=== PATIENT | female | born 1970 | race Caucasian/White ===

== ENCOUNTER 2018-01-12 19:44 | Emergency (ER) | payer BC, OTHER ==
--- NOTE | 2018-01-12 20:01 | UC ---
Ear Complaint HPI - HPI Summary HPI Summary: 47 yo female presents with right ear pain for the last 4 days getting progressively worse. Denies fever, chills, drainage, muffled hearing, sore throat. - History of Current Complaint Stated Complaint: RIGHT EAR COMPLAINT Time Seen by Provider: 01/12/18 20:01 Hx Obtained From: Patient Hx Last Menstrual Period: "It would have been two or three weeks ago." Onset/Duration: Gradual Onset Severity Initially: Mild Severity Currently: Moderate Pain Intensity: 6 Pain Scale Used: 0-10 Numeric - Allergies/Home Medications Allergies/Adverse Reactions: Allergies Allergy/AdvReac Type Severity Reaction Status Date / Time cefdinir [From Omnicef] AdvReac Vomiting Verified 01/12/18 19:52 sodium benzoate AdvReac Vomiting Verified 01/12/18 19:53 Home Medications: Home Medications Ibuprofen TAB* [Advil TAB*] 400 mg PO Q6H PRN 01/12/18 [History Confirmed ] PMH/Surg Hx/FS Hx/Imm Hx Cardiovascular History: Hypertension Neurological History: Migraine - Surgical History Surgical History: None - Family History Known Family History: Positive: None Negative: Cardiac Disease, Hypertension - Social History Occupation: Employed Full-time Lives: With Family Alcohol Use: None Substance Use Type: None Smoking Status (MU): Never Smoked Tobacco - Immunization History Most Recent Influenza Vaccination: Not the 2016/2016 Season Review of Systems Constitutional: Negative Skin: Negative Eyes: Negative ENT: Ear Ache Respiratory: Negative Cardiovascular: Negative Gastrointestinal: Negative Neurovascular: Negative Neurological: Negative Psychological: Negative All Other Systems Reviewed And Are Negative: Yes Physical Exam - Summary Physical Exam Summary: GENERAL: NAD. WDWN. No pain distress. SKIN: No rashes, sores, lesions, or open wounds. HEENT: Head: AT/NC Eyes: EOM intact. Conjunctiva clear without inflammation or discharge. Ears: Hearing grossly normal. Right TM with mild erythema and bulging. No canal edema or drainage. Throat: Posterior oropharynx without exudates, erythema, or tonsillar enlargement. Uvula midline. NECK: Supple. Nontender. No lymphadenopathy. CHEST: CTAB. No r/r/w. No accessory muscle use. Breathing comfortably and in no distress. CV: RRR. Without m/r/g. Pulses intact. Brisk cap refill. NEURO: Alert. CN II-XII grossly intact. PSYCH: Age appropriate behavior. Triage Information Reviewed: Yes Ear Complaint Course/Dx - Course Course Of Treatment: Right otitis media - Differential Dx/Diagnosis Provider Diagnoses: Right otitis media Discharge - Sign-Out/Discharge Documenting (check all that apply): Discharge/Admit/Transfer - Discharge Plan Condition: Stable Disposition: HOME Prescriptions: Amoxicillin PO (*) [Amoxicillin 500 MG CAP*] 500 mg PO Q12H #14 cap Patient Education Materials: Ear Infection (ED) Referrals: Jono Butler MD [Primary Care Provider] - Additional Instructions: If you develop a fever, shortness of breath, chest pain, new or worsening symptoms - please call your PCP or go to the ED. 1) May try over the counter DORA earache drops for pain relief - Billing Disposition and Condition Condition: STABLE Disposition: HOME
[2018-01-12 20:06] VITALS: BP 105/60
== END 2018-01-12 20:19 | disposition home or self-care (01) ==
LOC: UCCORT 19:44
DX: H66.91 Otitis media, unspecified, right ear (principal); Z88.3 Allergy status to other anti-infective agents; Z88.8 Allergy status to other drugs, medicaments and biological substances
CPT/HCPCS: 99212; G0463

== ENCOUNTER 2018-01-23 17:04 | Emergency (ER) | payer BC ==
[2018-01-23 17:46] VITALS: BP 114/60
--- NOTE | 2018-01-23 19:14 | UC ---
General HPI - HPI Summary HPI Summary: pt states was here 1.5 weeks ago and dx with an ear infection. she was tx with amoxicillin for 10 days and got better; however, about 2 days after she finished the tx she got recurrent pain in her R ear and R jaw. she denies and dental pain but notes a cap fell off her R upper back tooth a long time ago. pt admits to jaw popping. pt also c/o tick bite L lower leg. states on noted an insect (assumed to be a tick) on her leg. she brushed it off. she notes a red spot. she states it was there only briefly. no fever. - History of Current Complaint Chief Complaint: UCEar Stated Complaint: EAR COMPLAINT (R) Time Seen by Provider: 01/23/18 18:55 Hx Obtained From: Patient Hx Last Menstrual Period: 01/01/18 Pain Intensity: 5 Associated Signs & Symptoms: Negative: Fever - Allergy/Home Medications Allergies/Adverse Reactions: Allergies Allergy/AdvReac Type Severity Reaction Status Date / Time cefdinir [From Omnicef] AdvReac Vomiting Verified 01/23/18 17:40 Home Medications: Home Medications Norethindr/Eth Estradiol(Nf) [Lo Loestrin Fe (NF)] 1 tab DAILY 01/23/18 [ History Confirmed 01/23/18] PMH/Surg Hx/FS Hx/Imm Hx - Additional Past Medical History Additional PMH: OM Neurological History: Migraine - Surgical History Surgical History: None Surgery Procedure, Year, and Place: cervical sx. bladder sx - Family History Known Family History: Positive: None Negative: Cardiac Disease, Hypertension - Social History Occupation: Employed Full-time Lives: With Family Alcohol Use: None Substance Use Type: None Smoking Status (MU): Never Smoked Tobacco - Immunization History Most Recent Influenza Vaccination: Not the 2016/2017 Season Most Recent Tetanus Shot: UTD Vaccination Up to Date: Yes Review of Systems Constitutional: Negative Skin: Rash - L lower leg Eyes: Negative ENT: Ear Ache - R, Other - R jaw pain Respiratory: Negative Cardiovascular: Negative Gastrointestinal: Negative Genitourinary: Negative Motor: Negative Neurovascular: Negative Musculoskeletal: Negative Neurological: Negative Psychological: Negative Is Patient Immunocompromised?: No All Other Systems Reviewed And Are Negative: Yes Physical Exam Triage Information Reviewed: Yes Appearance: Well-Appearing Vital Signs: Initial Vital Signs Temp 99 F 01/23/18 17:41 Pulse 73 01/23/18 17:41 Resp 17 01/23/18 17:41 BP 114/60 01/23/18 17:41 Pulse Ox 98 01/23/18 17:41 Vital Signs Reviewed: Yes Eyes: Positive: Conjunctiva Clear ENT: Positive: Pharynx normal, TMs normal - and canals clear., Other - no mastoid tenderness. Popping to both TMJ'S WITH rom. Negative: Nasal congestion , Nasal drainage, Trismus, Hoarse voice Dental: Positive: Gross Decay/Caries @ - R upper posterior molar. Negative: Percussion Tenderness @ Neck: Positive: Supple, Nontender, No Lymphadenopathy Respiratory: Positive: Lungs clear, Normal breath sounds Cardiovascular: Positive: RRR, No Murmur Abdomen Description: Positive: Nontender, No Organomegaly, Soft Bowel Sounds: Positive: Present Musculoskeletal: Positive: ROM Intact Neurological: Positive: Alert Psychological: Positive: Age Appropriate Behavior Skin Exam: Normal, Other - 1CM pink spot L lower lateral leg. No bullseye Course/Dx - Course Course Of Treatment: No OM or OE on exam. I think ear pain is referred. + TMJ. will tx nsaid. R upper back molar with decay. I think there is an element of infection contributing to pt's pain supported by transient relief while on the prior antibiotic. Pt advised of risk for c-diff colitis with back to back antibiotics. pt willing to take risk and agrees to take probiotic thus will tx with amoxicillin and refer to oral surgery for the R upper posterior molar decay. no concern for salivary gland infection or ludwigs angina. - Differential Dx - Multi-Symptom Provider Diagnoses: R otalgia, TMJ syndrom, R upper molar decay/infection. Discharge - Sign-Out/Discharge Documenting (check all that apply): Discharge/Admit/Transfer - Discharge Plan Condition: Stable Disposition: HOME Prescriptions: Amoxicillin PO (*) [Amoxicillin 875 MG (*)] 875 mg PO BID #14 tab Naproxen [Naprosyn 500 mg tab] 500 mg PO BID #10 tablet Patient Education Materials: Dental Abscess (ED), Temporomandibular Disorder ( ED), Earache (ED) Referrals: Jono Butler MD [Primary Care Provider] - If Needed Additional Instructions: CALL DR SANDRA/ORAL SURGERY IN AM FOR NEXT AVAILABLE APPOINTMENT [address] [facility] [id number] TAKE A PROBIOTIC DAILY - Billing Disposition and Condition Condition: STABLE Disposition: HOME
== END 2018-01-23 19:29 | disposition home or self-care (01) ==
LOC: UCCORT 17:04
DX: H92.01 Otalgia, right ear (principal); M26.609 Unspecified temporomandibular joint disorder, unspecified side; K02.9 Dental caries, unspecified; K04.7 Periapical abscess without sinus; Z88.1 Allergy status to other antibiotic agents
CPT/HCPCS: 99212; G0463